=== PATIENT | male | born 1960 | race Caucasian/White ===

== ENCOUNTER 2017-05-10 09:31 | Emergency (ER) | payer BC ==
[2017-05-10 09:44] VITALS: BP 148/93; PULSE 88; TEMP 98; BMI 22.7
[2017-05-10] MEDS ORDERED: CEPHALEXIN MONOHYDRATE 500 MG CAPSULE (UD) PO ONE (10:14)
[2017-05-10] MEDS ORDERED: CEPHALEXIN MONOHYDRATE 250 MG CAPSULE (FP) ONE (10:26)
--- NOTE | 2017-05-10 10:28 | PDOC ---
History of Present Illness - General Chief Complaint: Sunburn Stated Complaint: SUN BURN Time Seen by Provider: 05/10/17 09:55 History Source: Patient - History of Present Illness Occurred: reports: last week Lower Extremity Pain Location: bilateral: leg Method of Injury: Yes: burn Past History - Past Medical History Allergies/Adverse Reactions: Allergies Allergy/AdvReac Type Severity Reaction Status Date / Time No Known Allergies Allergy Verified 05/10/17 09:35 Home Medications: Ambulatory Orders Cephalexin [Keflex] 500 mg PO Q6H #27 capsule 05/10/17 Ibuprofen [Motrin -] 800 mg PO Q6H #30 tablet 05/10/17 - Psycho/Social/Smoking Cessation Hx Anxiety: No Suicidal Ideation: No Smoking History: Never smoked Hx Alcohol Use: Yes (SOCIAL) Drug/Substance Use Hx: No Substance Use Type: None Review of Systems - Review of Systems Constitutional: No: Chills, Fever *Physical Exam - Vital Signs Last Vital Signs Temp Pulse Resp BP Pulse Ox 98.0 F 88 20 148/93 99 05/10/17 09:32 05/10/17 09:32 05/10/17 09:32 05/10/17 09:32 05/10/17 09:32 - Physical Exam General Appearance: Yes: Appropriately Dressed. No: Apparent Distress HEENT: positive: Normal Voice Neck: positive: Supple Respiratory/Chest: negative: Respiratory Distress Extremity: positive: Other (extensive erythema to anterior aspect of legs that extends fron dorsum of feet to distal thigh, 1x1 cm superficial wound to R barbour that could represent a ruptured blister, no induration or pus, no streaking) Integumentary: positive: Dry, Warm Neurologic: positive: Fully Oriented, Alert, Normal Mood/Affect Medical Decision Making - Medical Decision Making 05/10/17 10:35 57 yo M, no sig hx, p/w increased pain to RLE after sunburn. Pt states about a week ago, he fell asleep on his deck and awoke w/ red, painful legs per pt. States he has been using aloe vera on legs but feels that instead of pain lessening, pain to r leg is getting worse and has since noticed a wound to R barbour which could possibly represent a ruptured blister per pt. Denies f/c See exam 2nd degree burn to R LE w/ possible cellulitis Stable and well sravani in ED -tetanus UTD -dc w/ abx -wound check in 2 days 05/10/17 10:48 05/10/17 10:49 *DC/Admit/Observation/Transfer Diagnosis at time of Disposition: Sunburn Cellulitis Qualifiers: Site of cellulitis: extremity Site of cellulitis of extremity: lower extremity Laterality: right Qualified Code(s): L03.115 - Cellulitis of right lower limb - Discharge Dispostion Disposition: HOME Condition at time of disposition: Good - Prescriptions Prescriptions: Cephalexin [Keflex] 500 mg PO Q6H #27 capsule Ibuprofen [Motrin -] 800 mg PO Q6H #30 tablet - Patient Instructions Printed Discharge Instructions: DI for Sunburn, Cellulitis Additional Instructions: You were started on antibiotics for possible right lower leg infection. Return to ED or with your PMD in 2 days for reassessment. If symptoms worsen, return to ED immediately
--- NOTE | 2017-05-10 11:04 | PDOC ---
*Physical Exam - Vital Signs Last Vital Signs Temp Pulse Resp BP Pulse Ox 98.0 F 88 20 148/93 99 05/10/17 09:32 05/10/17 09:32 05/10/17 09:32 05/10/17 09:32 05/10/17 09:32 ED Treatment Course - Medications Given in the ED: ED Medications Discontinued Medications Generic Name Dose Route Start Last Admin Trade Name [place] PRN Reason Stop Dose Admin Cephalexin HCl 500 mg 05/10/17 10:14 05/10/17 10:30 Keflex - PO 05/10/17 10:15 500 mg ONCE ONE Administration Medical Decision Making - Medical Decision Making 05/10/17 11:04 57y M no pmhx presents with sunburn and an area on the R barbour with skin breakdown increased warmth and pain. pt has been applying some kind of aloe lotion to the sunburn. suspect the patient may have had some skin breakage and resulted in superinfection. no systemic complaints. will d/c abx and pmd fu return precuations were discussed The patient was seen and evaluated in conjunction with ALMA DELIA Hector under my direct supervision, ancillary studies were reviewed. I independently interviewed and evaluated the patient and I agree with the plan as outlined by ALMA DELIA Hector . *DC/Admit/Observation/Transfer Diagnosis at time of Disposition: Sunburn Cellulitis Qualifiers: Site of cellulitis: extremity Site of cellulitis of extremity: lower extremity Laterality: right Qualified Code(s): L03.115 - Cellulitis of right lower limb - Discharge Dispostion Disposition: HOME - Prescriptions Prescriptions: Cephalexin [Keflex] 500 mg PO Q6H #27 capsule Ibuprofen [Motrin -] 800 mg PO Q6H #30 tablet - Referrals - Patient Instructions Printed Discharge Instructions: Cellulitis, DI for Sunburn Additional Instructions: You were started on antibiotics for possible right lower leg infection. Return to ED or with your PMD in 2 days for reassessment. If symptoms worsen, return to ED immediately - Post Discharge Activity
== END 2017-05-10 10:40 | disposition home or self-care (01) ==
LOC: JER 09:31
DX: L55.9 Sunburn, unspecified (principal); L03.115 Cellulitis of right lower limb
CPT/HCPCS: 99282-25

== ENCOUNTER 2017-05-13 10:52 | Emergency (ER) | payer BC ==
[2017-05-13 10:58] VITALS: BP 136/92; PULSE 94; TEMP 98; BMI 22.4
--- NOTE | 2017-05-13 11:44 | PDOC ---
History of Present Illness - General History Source: Patient Exam Limitations: No Limitations - History of Present Illness Initial Comments: 05/13/17 12:53 The patient is a 57 year old male, with no significant past medical history, who presents to the emergency department with pain in the right lower extremity and sun burn. The patient states that he got a sun burn on his bilateral lower extremities that has been getting worse. The patient was in the ED 2 days ago and was evaluated, he was diagnosed with a first degree burn and placed on antibiotics. He notes that he antibiotics he takes every 6 hours. The patient has also been applying some kind of aloe lotion to the sunburn. He notes that the pain ranges from mild to moderate, without radiation. He also notes that the pain is exacerbated when he walks. The patient denies chest pain, shortness of breath, headache and dizziness. Denies fever, chills, nausea, vomit, diarrhea and constipation. Allergies: None Past surgical history: None reported Social history: Alcohol use. No tobacco or drug use reported <Daniel Leong - Last Filed: 05/13/17 13:16> <Jonathan Davis - Last Filed: 05/13/17 13:51> - General Chief Complaint: Redness To Affected Area Stated Complaint: LEG CELLULITIS Time Seen by Provider: 05/13/17 11:44 Past History <Daniel Leong - Last Filed: 05/13/17 13:16> - Past Medical History Other medical history: NONE - Psycho/Social/Smoking Cessation Hx Anxiety: No Suicidal Ideation: No Smoking History: Never smoked Have you smoked in the past 12 months: No Information on smoking cessation initiated: No Hx Alcohol Use: No Drug/Substance Use Hx: No Substance Use Type: None <Jonathan Davis - Last Filed: 05/13/17 13:51> - Past Medical History Allergies/Adverse Reactions: Allergies Allergy/AdvReac Type Severity Reaction Status Date / Time No Known Allergies Allergy Verified 05/13/17 10:53 Home Medications: Ambulatory Orders Cephalexin [Keflex] 500 mg PO Q6H #27 capsule 05/10/17 Ibuprofen [Motrin -] 800 mg PO Q6H #30 tablet 05/10/17 Sulfamethoxazole/Trimethoprim [Bactrim Ds -] 1 tab PO BID #20 tablet 05/13/17 Review of Systems - Review of Systems Constitutional: No: Chills, Fever Respiratory: No: Cough, Shortness of Breath Cardiac (ROS): No: Chest Pain Musculoskeletal: Yes: Muscle Pain Integumentary: Yes: See HPI Neurological: No: Tingling, Weakness All Other Systems: Reviewed and Negative <Jonathan Davis - Last Filed: 05/13/17 13:51> *Physical Exam - Vital Signs Last Vital Signs Temp Pulse Resp BP Pulse Ox 98.0 F 94 H 18 136/92 100 05/13/17 10:55 05/13/17 10:55 05/13/17 10:55 05/13/17 10:55 05/13/17 10:55 - Physical Exam Comments: 05/13/17 12:53 GENERAL: The patient is awake, alert, and fully oriented, in no acute distress. HEAD: Normal with no signs of trauma. EYES: Pupils equal, round and reactive to light, extraocular movements intact, sclera anicteric, conjunctiva clear with no pallor. ENT: Ears normal, nares patent, oropharynx clear without exudates. Moist mucous membranes. NECK: Normal range of motion, supple without lymphadenopathy, JVD, or masses. LUNGS: Breath sounds equal, clear to auscultation bilaterally. No wheeze/ crackles. HEART: Regular rate and rhythm, normal S1 and S2 without murmur or rub. ABDOMEN: Soft/nontender/nondistended. BS wnl. No guarding or rebound. No palpable masses. No hepatosplenomegaly. EXTREMITIES: Normal range of motion, no edema. No clubbing or cyanosis. No cords , erythema, or tenderness. NEUROLOGICAL: Cranial nerves II through XII grossly intact. Normal speech, normal gait. PSYCH: Normal mood, normal affect. SKIN: (+) First degree burn from distal high medially to the ankle Anterior mid medial distal third of the right barbour. 2 cm superficial ulceration with surrounding tenderness, no fluntuance, purulent, drainage or bleeding. First degree sun burn that is healing on the left barbour. <Daniel Leong - Last Filed: 05/13/17 13:16> - Vital Signs Last Vital Signs Temp Pulse Resp BP Pulse Ox 98.0 F 94 H 18 136/92 100 05/13/17 10:55 05/13/17 10:55 05/13/17 10:55 05/13/17 10:55 05/13/17 10:55 <Jonathan Davis - Last Filed: 05/13/17 13:51> ED Treatment Course - LABORATORY CBC & Chemistry Diagram: 05/13/17 11:49 05/13/17 11:49 - ADDITIONAL ORDERS Additional order review: Laboratory Results 05/13/17 11:49 Sodium 142 Potassium 4.6 Chloride 109 H Carbon Dioxide 24 Anion Gap 9 BUN 17 Creatinine 0.8 Creat Clearance w eGFR > 60 Random Glucose 90 Calcium 9.0 Total Bilirubin 0.5 AST 52 H ALT 56 Alkaline Phosphatase 91 Total Protein 7.0 Albumin 3.7 05/13/17 11:49 RBC 4.24 MCV 93.2 MCHC 34.0 RDW 13.4 MPV 8.4 Neutrophils % 45.5 Lymphocytes % 38.5 Monocytes % 11.0 H Eosinophils % 4.5 Basophils % 0.5 - RADIOLOGY Radiograph Interpretation: 05/13/17 13:16 Right lower extremity Reviewed by: Dr. Cl Benoit Impression: No acute pathology is identified. If Osteomyelitis is to be excluded, consider MRI or three phase bone scanning. - Medications Given in the ED: ED Medications Discontinued Medications Generic Name Dose Route Start Last Admin Trade Name [place] PRN Reason Stop Dose Admin Vancomycin HCl 1,000 mg/ 250 mls @ 250 mls/hr 05/13/17 11:52 05/13/17 12:00 Dextrose IVPB 05/13/17 12:51 250 mls/hr ONCE ONE Administration Protocol <Daniel Leong - Last Filed: 05/13/17 13:16> - LABORATORY CBC & Chemistry Diagram: 05/13/17 11:49 05/13/17 11:49 <Jonathan Davis - Last Filed: 05/13/17 13:51> Medical Decision Making - Medical Decision Making 05/13/17 13:35 A portion of this note was documented by scribe services under my direction. I have reviewed the details of the note, within reason, and agree with the documentation with the following case summary and management plan written by me. 57-year-old male with no significant past medical history presents for second visit/wound check of right barbour lesions/cellulitis. Patient initially had sunburn to both legs 10 days ago when he fell asleep outside, was evaluated here 3 days ago for right barbour pain and erythema surrounding a superficial lesion, diagnosed with cellulitis and discharged on Keflex. The patient presents now for wound check as instructed, states he continues to have pain around the skin ulceration but no radiating pain to the foot or thigh, no fevers or chills, some clear discharge but no pus or bleeding. No cardio pulmonary complaints. Has been applying bacitracin, his tetanus was updated on his previous visit. Vital signs normal. Exam as noted with bilateral lower leg first-degree sunburn, but a 2 cm superficial ulceration to the right barbour with an additional 1-2 cm of surrounding tender induration consistent with cellulitis, no abscess or fluctuance. Neurovascularly intact with 2+ distal pulses. 57-year-old immunocompetent male with right barbour cellulitis superimposed on first-degree sunburn. Neurovascularly intact, well appearing, cellulitis appears to be localized. Check CBC to rule out leukocytosis, white count 3.7 with normal differential Chemistries are within normal limits X-ray shows no soft tissue gas or bone disease Patient was given a dose of IV vancomycin in the emergency department, will discharge on continued antibiotics but will add Bactrim for MRSA coverage. Continue wound care, understands return criteria. <Jonathan Davis - Last Filed: 05/13/17 13:51> *DC/Admit/Observation/Transfer - Attestations Scribe Attestion: 05/13/17 12:53 Documentation prepared by Daniel Leong, acting as medical physiologist for Jonathan Davis MD <Daniel Leong - Last Filed: 05/13/17 13:16> <Jonathan Davis - Last Filed: 05/13/17 13:51> Diagnosis at time of Disposition: Cellulitis Qualifiers: Site of cellulitis: extremity Site of cellulitis of extremity: lower extremity Laterality: right Qualified Code(s): L03.115 - Cellulitis of right lower limb - Discharge Dispostion Disposition: HOME Condition at time of disposition: Improved - Prescriptions Prescriptions: Sulfamethoxazole/Trimethoprim [Bactrim Ds -] 1 tab PO BID #20 tablet - Patient Instructions Printed Discharge Instructions: DI for Cellulitis -- Adult Additional Instructions: Activity as tolerated. Stay hydrated. Tylenol 1000 mg every 8 hours and/or ibuprofen 600 mg every 8 hours as needed for pain. Ice and elevate the affected areas for 20 minutes every 3-4 hours to reduce swelling. Keep the wound clean and dry with bacitracin dressings twice daily. Continue your medications as previously prescribed by your physician. In addition to Cephalexin (Keflex), start Bactrim as prescribed twice daily. You should follow up with your primary doctor as soon as possible regarding today's emergency department visit. Return to the emergency department for any new or concerning symptoms, particularly increasing redness or swelling or pain, fevers or chills, pus or bleeding.
[2017-05-13] MEDS ORDERED: VANCOMYCIN 1,000 MG in DEXTROSE 5%-WATER - 250 ML IVPB ONE (11:52)
[2017-05-13] MEDS ORDERED: VANCOMYCIN 1 GRAM (PRE-DOCKED) 250 ML IVPB ONE (11:55)
[2017-05-13 12:16] LABS: BASOPHIL 0.5 % (0-2.0); EOSINOPHIL 4.5 % (0-4.5); MCH 31.7 pg (25.7-33.7); MEAN CELL VOLUME 93.2 fl (80-96); MEAN PLT VOLUME 8.4 fl (7.5-11.1); NEUTROPHILS 45.5 % (42.8-82.8); PLATELET COUNT 218 K/MM3 (134-434); RDW 13.4 % (11.9-15.9); WHITE BLOOD COUNT 3.7 K/mm3 (4.0-10.0)
[2017-05-13 12:45] LABS: ALBUMIN 3.7 g/dl (3.4-5.0); ANION GAP 9 (8-16); BILIRUBIN,TOTAL 0.5 mg/dL (0.2-1.0); CO2 24 mmol/L (21-32); CREATININE 0.8 mg/dL (0.7-1.3); GLUCOSE,RANDOM 90 mg/dL (74-106); SGOT/AST 52 U/L (15-37); SGPT/ALT 56 U/L (12-78)
[2017-05-13 12:46] LABS: ALK PHOS 91 U/L (45-117)
== END 2017-05-13 14:31 | disposition home or self-care (01) ==
LOC: JER 10:52
DX: L03.115 Cellulitis of right lower limb (principal)
CPT/HCPCS: 36415; 73590-TC-RT; 80053; 85025; 99282-25